=== PATIENT | male | born 1970 ===

== ENCOUNTER 2018-12-01 15:49 | Emergency (ER) | payer MEDICAID ==
[~2018-12-01] VITALS: Ht 167.6 cm; Wt 82.6 kg
[2018-12-01 16:04] VITALS: BP 129/80; Ht 167.6 cm; Wt 82.6 kg
== END 2018-12-01 17:49 | disposition home or self-care (01) ==
LOC: ED 15:49
DX: Z76.0 Encounter for issue of repeat prescription (principal); F31.9 Bipolar disorder, unspecified